=== PATIENT | male | born 1965 | race Caucasian/White ===

== ENCOUNTER → 2019-11-22 | Outpatient (CLI) | payer BC ==
--- NOTE | 2019-11-22 21:32 | RAD ---
EXAM: Bilateral hand radiograph 11/22/2019 12:00 AM CLINICAL INDICATION:Bilateral hand pain, concern for arthritis COMPARISON:None TECHNIQUE:3 views of the right hand. 3 views of the left hand. FINDINGS: Right hand: No acute fracture. Alignment is normal. Bone mineralization is normal. Joint spaces are maintained. There are small osteophytes of the distal radioulnar joint. No other productive changes. No erosions. No soft tissue calcifications. Left hand: No acute fracture. Alignment is normal. Bone mineralization is normal. Joint spaces are maintained. There are small osteophytes of the distal radioulnar joint. No other productive changes. No erosions. No soft tissue calcifications. 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 Otherwise normal radiographs of the hands. Electronically signed by: Santa Villa MD (11/22/2019 9:29 PM) [id number]
== END | disposition home or self-care (01) ==
LOC: RAD 17:22
PROVIDERS: ATTEND Internal Medicine
DX: M19.042 Primary osteoarthritis, left hand (principal); M19.041 Primary osteoarthritis, right hand; M25.742 Osteophyte, left hand; M25.741 Osteophyte, right hand
CPT/HCPCS: 73130